=== PATIENT | male | born 1960 | race Caucasian/White ===

== ENCOUNTER 2019-01-03 16:24 | Emergency (ER) | payer MEDICAID, OTHER ==
[~2019-01-03] VITALS: Ht 185.4 cm; Wt 135.0 kg
[2019-01-03 16:41] VITALS: BP 189/120
[2019-01-03] MEDS ORDERED: HYDROcodone/acetaminophen 10/325mg tab PO ONE (17:35)
[2019-01-03] MEDS ORDERED: HYDR-4383 PO (19:12)
== END 2019-01-03 19:32 | disposition home or self-care (01) ==
LOC: ER 16:25
DX: S42.291A Other displaced fracture of upper end of right humerus, initial encounter for closed fracture (principal); F17.200 Nicotine dependence, unspecified, uncomplicated; Z79.899 Other long term (current) drug therapy; V29.49XA Motorcycle driver injured in collision with other motor vehicles in traffic accident, initial encounter; Y93.89 Activity, other specified; Y92.488 Other paved roadways as the place of occurrence of the external cause; Y99.8 Other external cause status
CPT/HCPCS: 71045; 73030; 73080; 73200; 99284

== ENCOUNTER 2019-02-13 08:49 | Inpatient (IN) | payer MEDICAID ==
[2019-02-13] VITALS (12 sets, daily range): BP systolic 130–157; BP diastolic 54–103
[~2019-02-13] VITALS: Ht 188 cm; Wt 156.4 kg
[~2019-02-13 08:49] MED LIST: HYDR-4383 PO; VANCOMYCIN INJ 1000 MG in NORMAL SALINE 250ml IV.SOLN IV ONE; cefazolin/dext.iso 2gm/50ml 50 ML IV ONE; famotidine 20mg tablet PO ONE; ringers solution, lacted 1,000 ML IV SCH; tranexamic acid inj. 1,000 MG in normal saline 100 ML IV ONE
[2019-02-13] MEDS ORDERED: tranexamic acid inj. 1,000 MG in normal saline 100ml IV soln 100 ML IV ONE (10:30)
[2019-02-13] MEDS ORDERED: LIDOcaine 1% (10mg/ml) 2ml vial ONE (11:40)
[2019-02-13 13:01] LABS: BASOPHILS # (AUTO) 0.1 X10'3 (0-0.2); BASOPHILS % (AUTO) 0.8 % (0-1); EOSINOPHILS # (AUTO) 0.2 X10'3 (0-0.9); EOSINOPHILS % (AUTO) 2.9 % (0-6); LYMPHOCYTES # (AUTO) 1.8 X10'3 (1.1-4.8); LYMPHOCYTES % (AUTO) 23.9 % (21-51); MEAN CORPUSCULAR HEMOGLOBIN 29.5 PG (27.0-31.0); MEAN CORPUSCULAR HGB CONC 33.3 g/dL (33.0-36.5); MEAN CORPUSCULAR VOLUME 88.6 FL (78-98); MEAN PLATELET VOLUME 8.3 FL (7.4-10.4); MONOCYTES # (AUTO) 0.5 X10'3 (0-0.9); MONOCYTES % (AUTO) 6.1 % (2-12); NEUTROPHILS # (AUTO) 5.1 X10'3 (1.8-7.7); NEUTROPHILS % (AUTO) 66.3 % (42-75); PRE OP HEMATOCRIT 47.2 % (42.0-52.0); PRE OP HEMOGLOBIN 15.7 g/dL (14.0-17.9); PRE OP PLATELET COUNT 285 X10'3 (140-440); RED BLOOD COUNT 5.33 X10'6 (4.70-6.10); RED CELL DISTRIBUTION WIDTH 14.3 % (11.5-14.5)
[2019-02-13 13:34] LABS: ALBUMIN 4.1 G/DL (3.4-5.0); ALBUMIN/GLOBULIN RATIO 0.9 (1.1-1.5); ALKALINE PHOSPHATASE 133 IU/L (46-116); BLOOD UREA NITROGEN 15 MG/DL (7-18); BUN/CREATININE RATIO 14.4 (5.4-32.0); CALCIUM 9.2 MG/DL (8.5-10.1); CHLORIDE 105 MMOL/L (99-107); CREATININE 1.04 MG/DL (0.60-1.10); PRE OP ALT 44 U/L (30-65); PRE OP ANION GAP 10 (8-16); PRE OP AST 23 U/L (10-37); PRE OP BILIRUB, TOTAL 0.6 MG/DL (0.0-1.0); PRE OP GLUCOSE 98 MG/DL (70-104); PRE OP POTASSIUM 4.3 MMOL/L (3.4-5.1); PRE OP SODIUM 143 MMOL/L (135-145); TOTAL CARBON DIOXIDE 28.1 MMOL/L (24-32); TOTAL PROTEIN 8.6 G/DL (6.4-8.2); eGFR 73 ML/MIN
[2019-02-13] MEDS ORDERED: ketorolac trometh. 30mg/ml inj. ONE (16:20)
[2019-02-13] MEDS ORDERED: ROPIVAcaine 0.5% (5mg/ml) 30ml vial ONE ×2 (16:21→16:24)
[2019-02-13] MEDS ORDERED: fentaNYL/PF 50MCG/1 ML 2ML syringe ONE (16:22)
[2019-02-13] MEDS ORDERED: propofol inj 20 ML IV ONE (16:22)
[2019-02-13] MEDS ORDERED: MIDAZolam 5mg/5ml vial ONE (16:22)
[2019-02-13] MEDS ORDERED: oxyCODONE IR 5mg (immed. release) tablet PO PRN ×2 (17:05)
[2019-02-13] MEDS ORDERED: bisacodyl 10mg suppository rectal RC PRN (17:05)
[2019-02-13] MEDS ORDERED: ondansetron/PF 4mg/2ml inj IV PRN ×2 (17:05→18:00)
[2019-02-13] MEDS ORDERED: magnesium hydroxide 30ml (MOM) UD suspension PO PRN (17:05)
[2019-02-13] MEDS ORDERED: HYDROmorphone inj. 0.5 MG/0.5 ML DISP.SYRIN IV PRN (17:05)
[2019-02-13] MEDS ORDERED: acetaminophen 325mg tablet PO PRN (17:05)
[2019-02-13] MEDS ORDERED: diphenhydrAMINE 25mg capsule PO PRN ×2 (17:05)
[2019-02-13] MEDS ORDERED: HYDROmorphone 1 mg/ml syringe IV PRN (17:05)
[2019-02-13] MEDS ORDERED: meperidine/PF 25mg/ml syringe IV PRN ×3 (18:00)
[2019-02-13] MEDS ORDERED: proCHLORperazine 10 MG/2 ml inj IV PRN (18:00)
[2019-02-13] MEDS ORDERED: morphine 4 MG/ML inj SYRINge IV PRN ×2 (18:00)
[2019-02-13] MEDS ORDERED: ringers solution, lacted 1,000 ML IV SCH (18:00)
[2019-02-13] MEDS ORDERED: ROPIVAcaine 0.2%/PF PAIN PUMP 550 ML INTERSCALE SCH (18:00)
[2019-02-13] MEDS ORDERED: PER5325T PO (19:07)
[2019-02-13] MEDS ORDERED: ZOLP10TA5 PO (19:07)
[2019-02-13] MEDS ORDERED: LOSA50TA64 PO (19:07)
[2019-02-13] MEDS ORDERED: LEVO25TA7 PO (19:08)
--- NOTE | 2019-02-13 19:40 | NUR ---
Received from OR via BED , accompanied by Anesthesiologist DR CHAVEZ and report given by Anesthesiolgist. PATIENT WAKING UP, DENIES PAIN, V/S WNL, NEUROVASCULAR CHECKS INTACT, 20G PIV LUE , W/ SCD ON. RIGHT SHOULDER DRESSING CDI WITH ON QUE BALL AT 4ML/HR AND SLING
--- NOTE | 2019-02-13 19:45 | NUR ---
Received from OR via BED , accompanied by Anesthesiologist DR CHAVEZ and report given by Anesthesiolgist. PATIENT WAKING UP, DENIES PAIN, V/S WNL, NEUROVASCULAR CHECKS INTACT, 20G Jonny CROFT/ FLORINDA ON. RIGHT SHOULDER DRESSING CDI WITH ON QUE BALL AT 4ML/HR AND SLING Addendum: 02/13/19 at 2007 by Gera Gibbons RN WRONG TIME
[2019-02-13] MEDS ORDERED: vancomycin/NS 1 GM ADD-VANTAGE 250 ML IV SCH (20:00)
[2019-02-13] MEDS ORDERED: NORMAL SALINE IV ONE (20:00)
[2019-02-13] MEDS ORDERED: TRANEXAMIC ACID IV ONE (20:00)
--- NOTE | 2019-02-13 20:00 | NUR ---
Received report from JAI Ruvalcaba in PACU.
--- NOTE | 2019-02-13 20:10 | NUR ---
PATIENT A&OX4, DENIES PAIN, V/S WNL, NEUROVASCULAR CHECKS INTACT, 20G PIV LUE , W/ SCD ON. RIGHT SHOULDER DRESSING CDI WITH ON QUE BALL AT 4ML/HR AND SLING. PATIENT TAKEN TO 4024A WITH ALL BELONGINGS AND HOOKED UP TO MONITORS IN ROOM AND REPORT GIVEN TO POLITICAL SCIENCE PROFESSOR WHO HAS TAKEN OVER PATIENT CARE.
[2019-02-13] MEDS ORDERED: sennosides 8.6mg tablet PO SCH (21:00)
--- NOTE | 2019-02-13 21:00 | NUR ---
Patients BP 157/94. I asked pt if this is normal for him. Pt stated, "I take Losartan, my primary MD has been adjusting the the dose to figure out what works for me. My bottom number always runs high, that's what we are trying to get down".
[2019-02-13] MEDS: acetaminophen 325mg tablet PO SCH (21:36)
[2019-02-13] MEDS: potassium cl 20mEq in 1/2 NS 1,000 ML IV SCH (23:54)
[2019-02-13] MEDS: ceFAZolin 1GM/D5W- ADD-VANTAGE 50 ML IV SCH (23:58)
[2019-02-14] VITALS: BP 122/87
[2019-02-14 02:00] VITALS: BP 115/89
[2019-02-14] MEDS: acetaminophen 325mg tablet PO SCH ×2 (02:54→07:50)
[2019-02-14 06:07] LABS: BASOPHILS % (AUTO) 0.4 % (0-1); EOSINOPHILS % (AUTO) 0 % (0-6); HEMATOCRIT 43.5 % (42.0-52.0); HEMOGLOBIN 14.5 g/dl (14.0-17.9); LYMPHOCYTES # (AUTO) 1.2 X10'3 (1.1-4.8); LYMPHOCYTES % (AUTO) 9.8 % (21-51); MEAN CORPUSCULAR HEMOGLOBIN 29.3 PG (27.0-31.0); MEAN CORPUSCULAR HGB CONC 33.3 g/dL (33.0-36.5); MEAN CORPUSCULAR VOLUME 88.1 FL (78-98); MEAN PLATELET VOLUME 7.8 FL (7.4-10.4); MONOCYTES # (AUTO) 0.3 X10'3 (0-0.9); MONOCYTES % (AUTO) 2.8 % (2-12); NEUTROPHILS # (AUTO) 10.2 X10'3 (1.8-7.7); PLATELET COUNT 349 X10'3 (140-440); RED BLOOD COUNT 4.94 X10'6 (4.70-6.10); RED CELL DISTRIBUTION WIDTH 13.8 % (11.5-14.5); WHITE BLOOD COUNT 11.8 X10'3 (4.5-11.0)
[2019-02-14 06:17] LABS: ANION GAP 14 (8-16); CHLORIDE 107 MMOL/L (99-107); POTASSIUM 4.3 MMOL/L (3.5-5.1); SODIUM 143 MMOL/L (135-145); TOTAL CARBON DIOXIDE 22.5 MMOL/L (24-32)
--- NOTE | 2019-02-14 06:31 | NUR ---
Patient report given, questions answered and plan of care reviewed with JAI Harrell.
[2019-02-14] MEDS ORDERED: ASPI-1 PO (06:54)
[2019-02-14 06:56] VITALS: BP 122/89
[2019-02-14] MEDS: potassium cl 20mEq in 1/2 NS 1,000 ML IV SCH (07:05)
[2019-02-14] MEDS: ceFAZolin 1GM/D5W- ADD-VANTAGE 50 ML IV SCH (07:37)
[2019-02-14 08:00] VITALS: BP 122/83
[2019-02-14] MEDS ORDERED: aspirin 325mg tablet PO SCH (08:30)
--- NOTE | 2019-02-14 10:53 | NUR ---
Student Medication Administration: For this medication-pass time frame [id number], all medications were reviewed, administered and documented per hospital policy by Nadia Aguirre. Student documentation:I have reviewed and agree with all interventions, assessments performed and documented by Nadia Aguirre.
[2019-02-15] MEDS ORDERED: acetaminophen 325mg tablet PO PRN (17:05)
== END 2019-02-14 09:45 | disposition home or self-care (01) | DRG 315 ==
LOC: PAS IN 10:54 → EDSTATUS 12:15 → ORTHO 4S 20:20
PROVIDERS: ADMIT Orthopaedic Surgery; ATTEND Orthopaedic Surgery
PROC: 0LS30ZZ Reposition Right Upper Arm Tendon, Open Approach (ICD-10-PCS; 2019-02-13)
PROC: 3E0T3BZ Introduction of Anesthetic Agent into Peripheral Nerves and Plexi, Percutaneous Approach (ICD-10-PCS; 2019-02-13)
PROC: 0RRJ00Z Replacement of Right Shoulder Joint with Reverse Ball and Socket Synthetic Substitute, Open Approach (ICD-10-PCS; principal; 2019-02-13 16:24)
DX: S42.291A Other displaced fracture of upper end of right humerus, initial encounter for closed fracture (principal); Z68.41 Body mass index [BMI] 40.0-44.9, adult; E03.9 Hypothyroidism, unspecified; E78.00 Pure hypercholesterolemia, unspecified; E66.9 Obesity, unspecified; G47.30 Sleep apnea, unspecified; X58.XXXA Exposure to other specified factors, initial encounter; F17.210 Nicotine dependence, cigarettes, uncomplicated; I10 Essential (primary) hypertension; Z90.49 Acquired absence of other specified parts of digestive tract; Z72.89 Other problems related to lifestyle; Z79.899 Other long term (current) drug therapy; Y93.89 Activity, other specified; Y92.89 Other specified places as the place of occurrence of the external cause; Y99.8 Other external cause status
CPT/HCPCS: 36415; 80051; 80053; 85025; 87081; 93005; 97110; 97162; A4565; A4618; A7000; C1776; G0378; J0690; J1885; J2001; J2250; J2704; J2795; J3010; J3370; J3480; J7120